=== PATIENT | female | born 1990 | race Caucasian/White ===

== ENCOUNTER 2024-08-07 20:34 | Emergency (ER) | payer OTHER ==
[~2024-08-07] VITALS: Ht 162.6 cm; Wt 63.5 kg
[2024-08-07] MEDS ORDERED: ONDANSETRON 4 MG/2 ML VIAL ONE (21:12)
[2024-08-07] MEDS ORDERED: PANTOPRAZOLE SODIUM 40 MG VIAL ONE (21:12)
[2024-08-07] MEDS: PANTOPRAZOLE SODIUM 40 MG VIAL IV ONE (21:13)
[2024-08-07] MEDS: IV NORMAL SALINE 500 ML BAG IV ONE (21:13)
[2024-08-07] MEDS: ONDANSETRON 4 MG/2 ML VIAL IV ONE (21:13)
[2024-08-07 21:20] LABS: BASOPHILS % (AUTO) 0.6 % (0.0-2.0); EOSINOPHILS # (AUTO) 0.2 K/uL (0.0-0.7); EOSINOPHILS % (AUTO) 2.4 % (0.0-7.0); HEMATOCRIT 36.6 % (31.2-41.9); HEMOGLOBIN 12.3 g/dL (10.9-14.3); LYMPHOCYTES # (AUTO) 2.1 K/uL (0.8-4.8); LYMPHOCYTES % (AUTO) 28.5 % (20.5-51.5); MEAN CORPUSCULAR HEMOGLOBIN 34.6 uug (24.7-32.8); MEAN CORPUSCULAR HGB CONC 34 g/dL (32.3-35.6); MONOCYTES # (AUTO) 1.2 K/uL (0.1-1.30); MONOCYTES % (AUTO) 16.2 % (0.0-11.0); NEUTROPHILS # (AUTO) 3.8 K/uL (1.8-8.9); NEUTROPHILS % (AUTO) 52.3 % (38.5-71.5); PLATELET COUNT (AUTO) 245 K/uL (179-408); RED BLOOD CELL COUNT(AUTO) 3.56 MIL/uL (3.63-4.92); RED CELL DISTRIBUTION WIDTH 12.6 % (12.3-17.7); WHITE BLOOD COUNT (AUTO) 7.2 K/uL (3.8-11.8)
[2024-08-07 21:22] LABS: *BILIRUBIN,URIN NEGATIVE (NEGATIVE); *BLOOD, URINE NEGATIVE (NEGATIVE); *CLARITY,URINE CLEAR (CLEAR); *KETONES,URINE NEGATIVE (NEGATIVE); *PROTEIN,URINE NEGATIVE (NEGATIVE); *UROBILINOGEN,URINE 0.2 E.U./dl (NORMAL); LEUKOCYTE ESTERASE ,URINE NEGATIVE (NEGATIVE); NITRITE, URINE NEGATIVE (NEGATIVE); UGLUCOSE NEGATIVE (NEGATIVE)
[2024-08-07 21:22] LABS: DIFFERENTIAL COMMENT 1
[2024-08-07 21:26] LABS: *COLOR,URINE LIGHT YELLOW (YELLOW)
[2024-08-07 21:27] LABS: *URINE HCG, QUAL NEGATIVE (NEGATIVE)
[2024-08-07 21:33] LABS: CALCIUM 9.4 mg/dL (8.5-10.1); CREATININE 0.8 mg/dL (0.6-1.3); POTASSIUM 3.9 mmol/L (3.5-5.1)
[2024-08-07 21:39] LABS: ALBUMIN 3.9 g/dL (3.4-5.0); BILIRUBIN,TOTAL 0.2 mg/dL (0.2-1.0); MAGNESIUM 1.8 mg/dL (1.8-2.4); TOTAL PROTEIN, SERUM 7.4 g/dL (6.4-8.2)
[2024-08-07 21:46] LABS: BAND % (MANUAL) 1 % (0-10); EOSINOPHILS % (MANUAL) 1 % (0-8); LYMPHOCYTES % (MANUAL) 28 % (20-40); MONOCYTES % (MANUAL) 17 % (2-10); NEUTROPHILS % (MANUAL) 53 % (42-75)
[2024-08-07 21:47] LABS: ANISOCYTOSIS 1+; HYPOCHROMASIA 1+; PLATELET ESTIMATE ADEQUATE
[2024-08-07] MEDS ORDERED: PANT40TA2 PO (21:48)
[2024-08-07] MEDS ORDERED: ONDA4TAB5 PO (21:48)
[2024-08-07] MEDS ORDERED: DICY10CA13 PO (21:48)
[2024-08-07] MEDS ORDERED: DICYCLOMINE HCL 20 MG TABLET ONE (21:51)
[2024-08-07] MEDS: KETOROLAC TROMETHAMINE 15 MG INJ IVP ONE (21:52)
[2024-08-07] MEDS ORDERED: KETOROLAC TROMETHAMINE 15 MG INJ ONE (21:52)
[2024-08-07] MEDS: DICYCLOMINE HCL 20 MG TABLET PO STA (21:52)
[2024-08-07 22:24] VITALS: BP 127/69; TEMP 98.1; O2SAT 99
== END 2024-08-07 22:30 | disposition home or self-care (01) ==
LOC: ER 20:46
DX: R10.13 Epigastric pain (principal); R10.30 Lower abdominal pain, unspecified; Z79.899 Other long term (current) drug therapy; Z60.2 Problems related to living alone
CPT/HCPCS: 99284; 96374; 96375; 96361; 80053; 81003; 84703; 83690; 83735; 85007; 85027; 86140; 36415; J1885; J2405; J2470; J7040; 70030-TC; 85025; A4606; A4663